=== PATIENT | female | born 1965 | race Caucasian/White ===

== ENCOUNTER 2024-10-31 16:02 | Emergency (ER) | payer BC, SELFPAY ==
[2024-10-31 16:03] VITALS: BP 151/90
--- NOTE | 2024-10-31 17:24 | ED.GENMED ---
History of Present Illness
General
Chief Complaint: Head Injury
Source: patient
Exam Limitations: none
Time Seen by Provider: 10/31/24 17:05
Nursing documentation reviewed up to this point in time: agreed with
History of Present Illness
History of Present Illness:
Patient to ED for eval after a 4lb door stop fell from shelf onto her head. Hit back of head. No LOC. No wounds. Complains of headache. Incident occurred approx 3 hrs ago.
Past History
Past History
ED Past Medical History: None
Review of Systems
Review of Systems
Allergies reviewed?: Yes
All Other Systems: ROS reviewed and negative except as documented in HPI and ROS
Constitutional: Reports no symptoms
EENT: Reports no symptoms
Respiratory: Reports no symptoms
Cardiac: Reports no symptoms
ABD/GI: Reports no symptoms
: Reports no symptoms
Musculoskeletal: Reports no symptoms
Skin: Reports no symptoms
Neurological: Reports headache
Psychiatric: Reports no symptoms
Phy Exam
General Physical Exam
General Presentation: well appearing and mild distress
General age: appears stated age
General Skin: warm and dry
General Habitus: normal
General Mental: alert
Neurological Exam
Neurological Exam: alert, oriented x3, CN II-XII intact, no motor deficits, no sensory deficits and speech normal
Musculoskeletal Exam
Musculoskeletal Exam: full ROM
Skin Exam
Skin Exam: normal color, warm/dry and no rash
Psychiatric Exam
Psychiatric Exam: normal mood/affect
Course
Orders/Labs/Results
Orders:
Orders
10/31/24 17:24
CT Head W/o Iv Contrast Urgent
Comment:
Reason For Exam: trauma
10/31/24 18:12
Acetaminophen [Tylenol] 1,000 mg PO NOW STA
Vital Signs
Initial and Last Documented VS:
Initial Vital Signs
Temp Pulse Resp BP Pulse Ox
98.5 F 62 18 151/90 98
10/31/24 16:03 10/31/24 16:03 10/31/24 16:03 10/31/24 16:03 10/31/24 16:03
Last Documented Vital Signs
Temp Pulse Resp BP Pulse Ox
98.5 F 51 18 129/74 97
10/31/24 16:03 10/31/24 19:58 10/31/24 19:58 10/31/24 19:58 10/31/24 19:58
*Radiology
Radiology exam reviewed: radiology read reviewed
*Pulse Oximetry
SaO2: 98
Oxygen Mode of Delivery: Room air
Patient hypoxic: no
*Critical Care Note
Total Time (30-74mins, 75-104mins- exclusive of procedures): Not Applicable
Update Note
Update Note:
Patient to ED after a 4lb door stop fell off a shelf onto her head. No LOC. VSS, neurologically baseline. CT neg for bleeding, fx. Will discharge home, she will followup with PCP. Given instructions on s/s to return to ED and she is agreeable to
plan.
ED Attending Note
-
Portions of this chart may have been created with voice recognition software.� Occasional wrong word or��sound alike� substitutions may have occurred due to the inherent limitations of voice recognition software.
Discharge Plan
Departure
Patient Disposition: Home (Routine Discharge)
Date of Disposition: 10/31/24
Time of Disposition: 20:47
Patient with high blood pressure during this ER visit?: No
Condition: Good
Covid-19: Not Applicable
Discharge Problem:
Head injury
Instructions: Head Injury in Adults (DC), Contusion (DC)
Referrals:
Joycelyn Rivera DO [Family Provider, Family Practice] - Call in 1-3 days for appt
Interventions
Interventions:
*Risk Screen - Suicide Last Done: 10/31/24 16:03
*General Assessment Last Done: 10/31/24 16:03
*Neglect/Abuse Screening Last Done: 10/31/24 18:08
*ED- Fall Risk Assessment Last Done: 10/31/24 16:03
*ED COVID-19 Vaccine History Last Done: 10/31/24 16:03
ED- Neurological Assessment Last Done: 10/31/24 18:08
ED-Skin Assessment Last Done: 10/31/24 18:10
Discharge Date and Time
Print Language: [id number]
[2024-10-31 18:07] VITALS: BMI 22.3
[2024-10-31] MEDS: TYLENOL 1000 MG PO (18:35)
[2024-10-31 19:58] VITALS: BP 129/74
== END 2024-10-31 21:05 | disposition home or self-care (01) ==
LOC: EMR 16:02
PROVIDERS: EMERGENCY PHYSICIAN Emergency Medicine; FAMILY PHYSICIAN Family Medicine
DX: S09.90XA Unspecified injury of head, initial encounter (principal); W22.09XA Striking against other stationary object, initial encounter
CPT/HCPCS: 99284; 70450